=== PATIENT | female | born 1960 | race Caucasian/White ===

== ENCOUNTER 2018-09-29 09:05 | Emergency (ER) | payer BC, OTHER ==
[~2018-09-29] VITALS: Ht 162.6 cm; Wt 55.0 kg
--- NOTE | 2018-09-29 09:21 | NUR ---
KATHI RN: PT PRESENTED TO ED D/T LEFT SIDED CHEST PAIN RADIATING TO BACK. PT STATES INCREASED CHEST PAIN WHEN LYING DOWN. PT WAS SENT FROM . PT DENIES ANY MEDICAL HX. STATES 0/10 PAIN AT THIS TIME.
--- NOTE | 2018-09-29 09:24 | NUR ---
KATHI SHAIKH: REPORT TO NEEL QUINTANILLA.
[2018-09-29] MEDS ORDERED: KETOROLAC 60 MG/2 ML ONE (09:38)
[2018-09-29 09:55] LABS: BASOPHILS # (AUTO) 0.03 x10^3/uL (0-0.1); BASOPHILS % (AUTO) 1 % (0-1); EOSINOPHILS # (AUTO) 0.06 x10^3/uL (0-0.4); EOSINOPHILS % (AUTO) 1 % (1-7); LYMPHOCYTES # (AUTO) 2.08 x10^3/uL (1-3.4); LYMPHOCYTES % (AUTO) 35 % (22-44); MD NO; MEAN CORPUSCULAR HEMOGLOBIN 33.2 pg (27.0-34.8); MEAN CORPUSCULAR HGB CONC 33.5 g/dL (32.4-35.8); MEAN PLATELET VOLUME 7.9 fL (7.4-10.4); MONOCYTES # (AUTO) 0.48 x10^3/uL (0.2-0.8); MONOCYTES % (AUTO) 8 % (2-9); NEUTROPHILS # (AUTO) 3.22 x10^3/uL (1.8-6.8); NEUTROPHILS % (AUTO) 55 % (42-75); PLATELET COUNT 261 x10^3/uL (130-400); RED BLOOD COUNT 4.63 x10^6/uL (3.82-5.3); RED CELL DISTRIBUTION WIDTH 13.5 % (9.6-15.2)
[2018-09-29] MEDS ORDERED: KETOROLAC 60 MG/2 ML IM ONE (10:00)
[2018-09-29 10:05] LABS: ALANINE AMINOTRANSFERASE 21 U/L (12-78); ALBUMIN 3.9 g/dL (3.4-5.0); ANION GAP 7 mmol/L (5-15); CALCIUM 8.9 mg/dL (8.5-10.1); CHLORIDE 113 mmol/L (98-107)
[2018-09-29 10:08] VITALS: BP 158/82
--- NOTE | 2018-09-29 10:13 | NUR ---
PT STATES ADEQUATE PAIN RELIEF S/P PAIN MEDICATION.
[2018-09-29 10:20] LABS: ALKALINE PHOSPHATASE 100 U/L (45-117); BILIRUBIN,TOTAL 0.6 mg/dL (0.2-1.0); CREATININE 0.73 mg/dL (0.55-1.02); TROPONIN I < 0.015 ng/mL (0.000-0.045)
[2018-09-29 10:22] LABS: TOTAL PROTEIN 7.1 g/dL (6.4-8.2)
--- NOTE | 2018-09-29 10:45 | NUR ---
Patient/Caregiver given discharge instructions and they have confirmed that they understand the instructions. Patient ambulatory with steady gait.
== END 2018-09-29 10:58 | disposition home or self-care (01) ==
LOC: ED 10:42
DX: R07.2 Precordial pain (principal); M79.18 Myalgia, other site; F17.200 Nicotine dependence, unspecified, uncomplicated
CPT/HCPCS: 36415; 71045; 80053; 84484; 85025; 93005; 96372; 99284; J1885

== ENCOUNTER 2020-10-17 11:28 | Emergency (ER) | payer BC ==
[~2020-10-17] VITALS: Ht 165.1 cm; Wt 65.7 kg
--- NOTE | 2020-10-17 12:03 | NUR ---
PT HAS CO CHEST PAIN LEFT SHOULDER, LEFT CHEST, LEFT ARM. RECENT TOOTH INFECTION W LEFT SIDE FACIAL SWELLING THAT CAUSED PAIN TO LEFT NECK AND SHOULDER. ON ABX FROM DENTIST. NO N/V. ON CARD MONITOR.
--- NOTE | 2020-10-17 13:00 | NUR ---
pt ambulated to bathroom . waiting for results from lab
[2020-10-17 13:11] LABS: ALANINE AMINOTRANSFERASE 24 U/L (12-78); ALBUMIN 3.4 g/dL (3.4-5.0); ANION GAP 5 mmol/L (5-15); CHLORIDE 112 mmol/L (98-107); CREATININE 0.63 mg/dL (0.55-1.02)
[2020-10-17 13:13] LABS: ALKALINE PHOSPHATASE 115 U/L (45-117); BILIRUBIN,TOTAL 0.6 mg/dL (0.2-1.0); TOTAL PROTEIN 6.9 g/dL (6.4-8.2)
[2020-10-17 13:14] LABS: BASOPHILS % (AUTO) 1 % (0-1); EOSINOPHILS % (AUTO) 2 % (1-7); LYMPHOCYTES % (AUTO) 27 % (22-44); MEAN CORPUSCULAR HEMOGLOBIN 34.3 pg (27.0-34.8); MEAN PLATELET VOLUME 8.8 fL (7.4-10.4); MONOCYTES % (AUTO) 9 % (2-9); NEUTROPHILS % (AUTO) 61 % (42-75); PLATELET COUNT 255 x10^3/uL (130-400); RED BLOOD COUNT 4.82 x10^6/uL (3.82-5.3); RED CELL DISTRIBUTION WIDTH 13.4 % (9.6-15.2)
[2020-10-17 13:30] VITALS: BP 174/86
--- NOTE | 2020-10-17 14:03 | NUR ---
Patient/Caregiver given discharge instructions and they have confirmed that they understand the instructions. Patient ambulatory with steady gait.
== END 2020-10-17 14:04 | disposition home or self-care (01) ==
LOC: ED 13:50
DX: R21 Rash and other nonspecific skin eruption (principal); T36.0X5A Adverse effect of penicillins, initial encounter; R11.0 Nausea; F17.210 Nicotine dependence, cigarettes, uncomplicated; R94.31 Abnormal electrocardiogram [ECG] [EKG]; Z85.41 Personal history of malignant neoplasm of cervix uteri
CPT/HCPCS: 36415; 80053; 85025; 93005; 99284; 99406